=== PATIENT | female | born 1995 | race Asian ===

== ENCOUNTER → 2018-04-19 22:01 | Emergency (ER) | payer MEDICAID ==
[~2018-04-19 22:01] MED LIST: Cephalexin CAP* 500 MG PO ONE
--- NOTE | 2018-04-19 23:10 | ED ---
Laceration/Wound HPI - HPI Summary HPI Summary: Patient presents with laceration to her left bridges after hitting leg on a candle while coming down from a handstand. Denies any other pain injury or symptoms. Bleeding controlled. No anti-coag. Tetanus status up-to-date. - History of Current Complaint Stated Complaint: LT LEG LAC Time Seen by Provider: 04/19/18 22:41 Hx Obtained From: Patient Mechanism of Injury: Sharp/Blunt Trauma Onset Severity: Mild Current Severity: Mild Pain Intensity: 2 Associated Signs & Symptoms: Negative - Allergy/Home Medications Allergies/Adverse Reactions: Allergies Allergy/AdvReac Type Severity Reaction Status Date / Time No Known Allergies Allergy Verified 04/19/18 22:14 PMH/Surg Hx/FS Hx/Imm Hx Endocrine/Hematology History: Denies: Hx Anticoagulant Therapy Cardiovascular History: Denies: Hx Cardiac Arrest History: Denies: Hx Dialysis Neurological History: Denies: Hx CVA Infectious Disease History: No Infectious Disease History: Denies: Traveled Outside the [place] in Last 30 Days - Family History Known Family History: Positive: Non-Contributory - Social History Alcohol Use: None Substance Use Type: Reports: None Smoking Status (MU): Never Smoked Tobacco Review of Systems Constitutional: Negative Eyes: Negative ENT: Negative Cardiovascular: Negative Respiratory: Negative Gastrointestinal: Negative Genitourinary: Negative Musculoskeletal: Negative Skin: Other Neurological: Negative Psychological: Normal All Other Systems Reviewed And Are Negative: Yes Physical Exam Triage Information Reviewed: Yes Vital Signs On Initial Exam: Initial Vitals Temp Pulse Resp BP Pulse Ox 99.7 F 93 16 130/82 98 04/19/18 22:08 04/19/18 22:08 04/19/18 22:08 04/19/18 22:08 04/19/18 22:08 Vital Signs Reviewed: Yes Appearance: Positive: Well-Appearing Skin: Positive: Warm Head/Face: Positive: Normal Head/Face Inspection Eyes: Positive: Normal Neck: Positive: Supple Respiratory/Lung Sounds: Positive: Clear to Auscultation Cardiovascular: Positive: Normal Abdomen Description: Positive: Nontender Musculoskeletal: Positive: Normal Neurological: Positive: Normal Psychiatric: Positive: Normal AVPU Assessment: Alert - Rindge Coma Scale Best Eye Response: 4 - Spontaneous Best Motor Response: 6 - Obeys Commands Best Verbal Response: 5 - Oriented Coma Scale Total: 15 Procedures - Laceration/Wound Repair 1 Location: lower extremity Description: Linear Anesthesia: Local, 1.0% Length, Depth and Shape: 3cm x .5cm Betadine Prep?: Yes Irrigated w/ Saline (ccs): 200 Debridement: minimal Number of Sutures: 4 - 3.0 prolene Layer Closure?: No Sterile Dressing Applied?: No Diagnostics - Vital Signs Vital Signs Temp Pulse Resp BP Pulse Ox 04/19/18 22:08 99.7 F 93 16 130/82 98 - Laboratory Lab Statement: Any lab studies that have been ordered have been reviewed, and results considered in the medical decision making process. Laceration Repair Course/Dx - Course Course Of Treatment: Patient presents with laceration to her left bridges after hitting leg on a candle while coming down from a handstand. Denies any other pain injury or symptoms. Bleeding controlled. No anti-coag. Tetanus status up -to-date. Wound sutured. Rx for Keflex. - Clinical Impression Provider Diagnoses: Laceration Discharge - Sign-Out/Discharge Documenting (check all that apply): Patient Departure - Discharge Plan Condition: Stable Disposition: HOME Prescriptions: Cephalexin CAP* [Keflex CAP*] 500 mg PO TID 5 Days #15 cap Patient Education Materials: Care For Your Stitches (ED), Laceration (ED) Referrals: No Primary Care Phys,NOPCP [Primary Care Provider] - [facility] [Outside] Additional Instructions: Sutures out in 10 days. May wash with warm running water and soap. Do not submerge. Take antibiotic as directed. Follow-up with primary care. Return to the ED for any new or worsening symptoms. - Billing Disposition and Condition Condition: STABLE Disposition: Home
[2018-04-19 23:54] VITALS: BP 122/78
== END | disposition home or self-care (01) ==
LOC: ED 22:01
DX: S81.812A Laceration without foreign body, left lower leg, initial encounter (principal); W22.8XXA Striking against or struck by other objects, initial encounter; Y92.9 Unspecified place or not applicable
CPT/HCPCS: 12002; 99282; A9270-GY